=== PATIENT | female | born 1970 | race Caucasian/White ===

== ENCOUNTER 2019-03-30 12:35 | Emergency (ER) | payer OTHER, SELFPAY ==
[2019-03-30 12:46] VITALS: BP 125/74; PULSE 81; RESP 14; TEMP 36.8; O2SAT 98
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
[2019-03-30] MEDS: Ibuprofen 600 MG TAB (12:58)
[2019-03-30] MEDS: Acetaminophen 325 MG TAB (12:58)
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
--- NOTE | 2019-03-30 14:40 | DI.RAD_ITS ---
SYMPTOM/DIAGNOSIS: CLOSED REDUCTION OF RIGHT WRIST FX RIGHT WRIST: Fluoroscopy Time: 36 sec Fluoroscopy was utilized by Dr. Swann during the reduction of the distal right radial fracture Hard copy images obtained show successful reduction of the fracture. Alignment appears anatomic. The patient's wrist is in a cast. Please refer to the procedure report for complete details.
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
== END 2019-03-30 14:54 | disposition home or self-care (01) ==
PROVIDERS: Emergency Provider Emergency Medicine
DX: S52.571A Other intraarticular fracture of lower end of right radius, initial encounter for closed fracture; W01.0XXA Fall on same level from slipping, tripping and stumbling without subsequent striking against object, initial encounter
CPT/HCPCS: 99253; 99283; 25605; 73100; 73110; 99282; L3650